=== PATIENT | female | born 1965 | race Caucasian/White ===

== ENCOUNTER 2017-05-17 20:13 | Emergency (ER) | payer SELFPAY ==
[~2017-05-17] VITALS: Ht 165.1 cm; Wt 72.4 kg
[~2017-05-17 20:13] MED LIST: ADVAIR 2501 DISK W/D IH; ADVAIR 5001 DISK W/D; ALBUTEROL I0.5 ML/EA AERO NEB; ALBUTEROL INH 0.3 ML AERO NEB; ALBUTEROL SULF8.5 G2 IH; ALBUTEROL SULF8.5 GM IH; ALBUTEROL0.83 MG/ML; ALBUTEROL0.83 MG/ML INH; ALBUTEROL1.25 MG/3 IH; ALBUTEROL17 GM INH; ALBUTEROL2.5 MG/0.1 IH; ALBUTEROL2.5 MG/0.5 IH; ATARAX50 MG; ATROVENT SOLN2.5 ML AERO NEB; AZITHROMYCIN250 M1 PO; AZITHROMYCIN250 MG PO; BENADRYL25 MG; CARAFATE1 G PO; CHLORASEPTIC LO1 LOZ MM; CIPRO500 MG PO; COMBIVENT; COMBIVENT INH14.7 GM; COMBIVENT INH14.7 GM IH; COMBIVENT1 PUFF INH; CYCLOBENZAPRINE10 MG PO; DELTASONE10 MG PO; DOXY-LEMMON100 MG PO; FLEXERIL10 MG PO; IPRAT-ALBUT 0.5-3 ML INH; KEFLEX500 MG; LORTAB 5/500 TA1 TAB PO; MEDROL4 MG/DOSE- PO; MOTRIN600 MG PO; NORCO 5/325 TAB1 TAB PO; NORCO 5/3251 TAB PO; NORCO 7.5/325 T1 TAB PO; OMEPRAZOLE40 MG PO; OTC COUGH; OXYCODONE/APAP PO; PERCOCET 5/3251 TAB PO; PERCOCET 5MG/AP1 TA3 PO; PHENERGAN W/CO120 ML PO; PREDNISONE10 M1 PO; PREDNISONE10 MG PO; PREDNISONE20 MG PO; PROAIR HFA8.5 GM IH; PROVENTIL17 GM IH; QVAR8.7 G1 INH; SINGULAIR10 MG PO; SKELAXIN800 M1 PO; SKELAXIN800 MG PO; SPIRIVA18 MCG IH; STERIOD CREAM; SYMBICORT 160-4.6 GM IH; SYMBICORT 16010.2 GM IH; TAMIFLU75 MG PO; TESSALON PERLE100 MG PO; TESSALON200 MG PO; TYLENOL325 M1 PO; TYLENOL325 MG PO; ULTRAM50 M1 PO; ULTRAM50 MG PO; VENTOLIN HFA18 GM INH; VENTOLIN HFA8 GM; ZITHROMAX250 M1 PO; ZITHROMAX250 MG PO; ZITHROMAX250MG Z-PAK PO; ZOFRAN4 MG PO; ZYRTEC10 MG PO; [UNRECOGNIZED DRUG - CODE] INH
[2017-05-17] MEDS ORDERED: ADVAIR 100-501 EACH PO (20:23)
[2017-05-17] MEDS ORDERED: ZYRTEC10 M7 PO (20:27)
[2017-05-17] MEDS ORDERED: ZITHROMAX250 M1 PO (21:46)
[2017-05-17] MEDS ORDERED: IPRAT-ALBUT 0.5-3 ML INH (21:48)
[2017-05-17] MEDS ORDERED: VENTOLIN HFA18 G2 PO (21:48)
== END 2017-05-17 22:01 ==
LOC: EDMED 20:13
DX: J45.901 Unspecified asthma with (acute) exacerbation (principal)
CPT/HCPCS: J1100